=== PATIENT | male | born 1955 | race Caucasian/White ===

== ENCOUNTER → 2019-06-05 | Outpatient (CLI) | payer OTHER ==
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
[~2019-06-05] VITALS: Ht 175.3 cm; Wt 109.8 kg
[~2019-06-05] MED LIST: REGADENOSON 0.4 MG/5 ML PF SYG IVP SCH
== END | disposition home or self-care (01) ==
LOC: SHCH 06-03 07:48
PROVIDERS: ATTEND Internal Medicine Cardiovascular Disease
DX: I25.10 Atherosclerotic heart disease of native coronary artery without angina pectoris (principal)
CPT/HCPCS: 78452; 93017; 96374; A9500 ×2; J2785

== ENCOUNTER → 2022-02-17 | Outpatient (CLI) | payer OTHER ==
[2022-02-17 13:26] LABS: CREATININE 1.3 mg/dL (0.5-1.5)
== END | disposition home or self-care (01) ==
LOC: LAB 11:56
PROVIDERS: ATTEND Family Medicine
DX: M25.561 Pain in right knee (principal)
CPT/HCPCS: 36415; 82565; 84520

== ENCOUNTER → 2022-02-20 | Outpatient (CLI) | payer OTHER ==
[~2022-02-20] MED LIST changes: +GADOTERATE MEGLUMINE 10 MMOL/20 ML VIAL IV ONE; -REGADENOSON 0.4 MG/5 ML PF SYG IVP SCH
== END | disposition home or self-care (01) ==
LOC: RAH 11:08
PROVIDERS: ATTEND Family Medicine
DX: S83.281A Other tear of lateral meniscus, current injury, right knee, initial encounter (principal); M17.11 Unilateral primary osteoarthritis, right knee; M65.9 Synovitis and tenosynovitis, unspecified; M71.21 Synovial cyst of popliteal space [Baker], right knee; S83.241A Other tear of medial meniscus, current injury, right knee, initial encounter; X58.XXXA Exposure to other specified factors, initial encounter; Y93.89 Activity, other specified; Y92.89 Other specified places as the place of occurrence of the external cause; Y99.8 Other external cause status
CPT/HCPCS: 73723; A9575

== ENCOUNTER → 2022-07-18 | Outpatient (CLI) | payer OTHER ==
[~2022-07-18] MED LIST changes: -GADOTERATE MEGLUMINE 10 MMOL/20 ML VIAL IV ONE; +REGADENOSON 0.4 MG/5 ML PF SYG IVP SCH
== END | disposition home or self-care (01) ==
LOC: SHCH 09:10
PROVIDERS: ATTEND Internal Medicine Cardiovascular Disease
DX: Z01.810 Encounter for preprocedural cardiovascular examination (principal); I45.10 Unspecified right bundle-branch block; R94.39 Abnormal result of other cardiovascular function study; M25.561 Pain in right knee; M17.0 Bilateral primary osteoarthritis of knee; I12.9 Hypertensive chronic kidney disease with stage 1 through stage 4 chronic kidney disease, or unspecified chronic kidney disease; N18.9 Chronic kidney disease, unspecified; E78.5 Hyperlipidemia, unspecified; Z79.899 Other long term (current) drug therapy; Z95.1 Presence of aortocoronary bypass graft
CPT/HCPCS: 78452; 96374; 93017; J2785; A9500 ×2

== ENCOUNTER 2022-08-15 07:27 | Observation (INO) | payer OTHER ==
[2022-08-09 14:19] LABS: BASOPHILS % (AUTO) 0.4 % (0.0-5.0); EOSINOPHILS % (AUTO) 3.3 % (0.0-8.0); HEMATOCRIT 49.6 % (42-54); LYMPHOCYTES % (AUTO) 22.8 % (21.0-51.0); MEAN CORPUSCULAR HEMOGLOBIN 31.5 pg (27.0-33.0); MEAN CORPUSCULAR HGB CONC 32.9 g/dL (32.0-36.0); MEAN CORPUSCULAR VOLUME 95.8 fL (79-99); MONOCYTES % (AUTO) 6.1 % (3.0-13.0); PLATELET COUNT (AUTO) 197 K/uL (130-400); RED BLOOD CELL COUNT(AUTO) 5.18 MIL/uL (4.50-6.20); WHITE BLOOD COUNT (AUTO) 7.2 K/uL (4.8-10.8)
[2022-08-09 14:29] LABS: INR 1.07 (0.85-1.15); PROTHROMBIN TIME 11.6 SEC (9.6-11.6)
[2022-08-09 14:31] LABS: CREATININE 1.2 mg/dL (0.5-1.5); PARTIAL THROMBOPLASTIN TIME 29.1 SEC (26.3-35.5); POTASSIUM 3.9 mmol/L (3.5-5.1)
[~2022-08-15] VITALS: Ht 175.3 cm; Wt 111.6 kg
[2022-08-15] VITALS (24 sets, daily range): BP systolic 112–160; BP diastolic 55–97
[~2022-08-15 07:27] MED LIST changes: +AEC81 PO; +AMLO-257 PO; +ANDROGEL PO; +BUPR75TA8 PO; +CARV10CR PO; +CLOP-31 PO; +EZET10TA48 PO; +FENO145T26 PO; +GLUCOSAMINE PO; +KRILL OIL PO; +LACTATED RINGERS 1000ML 1,000 ML IV SCH; +OLME40TA18 PO; -REGADENOSON 0.4 MG/5 ML PF SYG IVP SCH; +ROSU20TA23 PO; +TRANEXAMIC ACID 1000MG/10ML IJ SCH; +TRAZ150T79 PO; +VITAMIN D3 PO
[2022-08-15] MEDS: CEFAZOLIN SODIUM 2 GM VIAL IVPB SCH ×2 (08:00→11:55)
[2022-08-15] MEDS ORDERED: TRANEXAMIC ACID 1000MG/10ML ONE (08:38)
[2022-08-15] MEDS ORDERED: ROPIVACAINE 0.5% 5MG/ML 30ML IJ ONE (08:38)
[2022-08-15] MEDS ORDERED: ESCI-8 PO (08:41)
[2022-08-15] MEDS ORDERED: SUCCINYLCHOLINE CHLORIDE 20 MG/ML 10 ML VIAL ONE (11:35)
[2022-08-15] MEDS ORDERED: ROCURONIUM 10MG/1ML SYR 10 MG/ML ML ONE (11:36)
[2022-08-15] MEDS ORDERED: MIDAZOLAM HCL 1 MG/ML 2ML VIAL ONE (11:36)
[2022-08-15] MEDS ORDERED: FENTANYL CITRATE PF 50 MCG/1 ML 2ML VIAL ONE (11:36)
[2022-08-15] MEDS ORDERED: PROPOFOL 10 MG/ML 20ML VIAL IV ONE (11:36)
[2022-08-15] MEDS ORDERED: EPHEDRINE SULFATE 50 MG/ML AMPULE ONE (12:25)
[2022-08-15] MEDS ORDERED: GLYCOPYRROLATE 1 MG/5 ML SYRINGE ONE (13:49)
[2022-08-15] MEDS ORDERED: NEOSTIGMINE 5MG/5ML SYR IV ONE (13:49)
[2022-08-15] MEDS ORDERED: LIDOCAINE HCL-MPF 1% 2ML VIAL IV PRN (14:00)
[2022-08-15] MEDS ORDERED: ONDANSETRON 4MG INJ IVP PRN (14:00)
[2022-08-15] MEDS ORDERED: HYDROCODONE/ACETAMINOPHEN 5/325 MG TAB PO PRN (14:00)
[2022-08-15] MEDS ORDERED: POTASSIUM CHLORIDE 10% ELIXIR 20 MEQ/15 ML UDCUP PO PRN (14:00)
[2022-08-15] MEDS ORDERED: 0.9%NACL 1000ML 1,000 ML IV SCH (14:00)
[2022-08-15] MEDS ORDERED: KCL 20 MEQ ERTAB PO PRN (14:00)
[2022-08-15] MEDS ORDERED: POTASSIUM CHLORIDE 20MEQ/100ML 100 ML IV PRN (14:00)
[2022-08-15] MEDS: ACETAMINOPHEN 1,000 MG/100 ML VIAL IV SCH ×2 (14:25→20:26)
[2022-08-15] MEDS ORDERED: MEPERIDINE-PF 25 MG/ML SYG ONE (14:29)
[2022-08-15] MEDS ORDERED: IBUPROFEN 800MG + NS 250ML IV SCH (17:00)
[2022-08-15] MEDS: MORPHINE 4 MG SYG IVP PRN ×2 (17:58→23:29)
[2022-08-15] MEDS: CEFAZOLIN SODIUM 2 GM VIAL IVP SCH (18:46)
[2022-08-15] MEDS: ASPIRIN 81 MG EC TAB PO SCH (20:44)
[2022-08-15] MEDS: FENOFIBRATE NANOCRYSTALLIZED 145 MG TAB PO SCH (20:44)
[2022-08-15] MEDS: FAMOTIDINE 20MG TAB PO SCH (20:44)
[2022-08-15] MEDS: CITALOPRAM 20 MG TABLET PO SCH (20:45)
[2022-08-15] MEDS: CARVEDILOL PHOSPHATE 10 MG PO SCH (20:45)
[2022-08-15] MEDS: HYDROCODONE/ACETAMINOPHEN 10/325 MG TAB PO PRN (22:01)
[2022-08-15] MEDS: TRAZODONE HCL 50 MG TAB PO SCH (23:36)
[2022-08-16] VITALS: BP 136/72
[2022-08-16] MEDS: CALDOLOR 800MG+NS 250ML 250 ML IV SCH ×2 (01:30→09:24)
[2022-08-16] MEDS: MORPHINE 4 MG SYG IVP PRN ×4 (03:11→20:17)
[2022-08-16] MEDS: ACETAMINOPHEN 1,000 MG/100 ML VIAL IV SCH (03:11)
[2022-08-16 04:00] VITALS: BP 137/76
[2022-08-16] MEDS: CEFAZOLIN SODIUM 2 GM VIAL IVP SCH (04:45)
[2022-08-16 05:23] LABS: HEMATOCRIT 44.8 % (42-54); MEAN CORPUSCULAR HEMOGLOBIN 32.6 pg (27.0-33.0); MEAN CORPUSCULAR VOLUME 98.7 fL (79-99); RED BLOOD CELL COUNT(AUTO) 4.54 MIL/uL (4.50-6.20); RED CELL DISTRIBUTION WIDTH 13.2 % (11.0-15.5); WHITE BLOOD COUNT (AUTO) 10.5 K/uL (4.8-10.8)
[2022-08-16 05:42] LABS: CREATININE 1.2 mg/dL (0.5-1.5); POTASSIUM 3.8 mmol/L (3.5-5.1)
[2022-08-16 07:05] VITALS: BP 131/75
[2022-08-16] MEDS: CARVEDILOL PHOSPHATE 10 MG PO SCH ×2 (09:00→18:57)
[2022-08-16] MEDS: TESTOSTERONE 100 MG PO SCH (09:00)
[2022-08-16] MEDS: HYDROCODONE/ACETAMINOPHEN 10/325 MG TAB PO PRN ×3 (09:13→22:32)
[2022-08-16] MEDS: FAMOTIDINE 20MG TAB PO SCH ×2 (09:14→20:14)
[2022-08-16] MEDS: ASPIRIN 81 MG EC TAB PO SCH ×2 (09:14→20:14)
[2022-08-16] MEDS: AMLODIPINE 5 MG TAB PO SCH (09:14)
[2022-08-16] MEDS: BUPROPION HCL 150 MG TABLET.SA PO SCH (09:14)
[2022-08-16] MEDS: EZETIMIBE 10 MG TAB PO SCH (09:14)
[2022-08-16] MEDS: POLYETHYLENE GLYCOL 3350 17 GM POWD.PACK PO SCH (09:16)
[2022-08-16] MEDS: LOSARTAN 100 MG TABLET PO SCH (09:16)
[2022-08-16 11:05] VITALS: BP 150/80
[2022-08-16 15:30] VITALS: BP 178/84
[2022-08-16] MEDS ORDERED: PREDNISONE 10 MG TABLET ONE (16:34)
[2022-08-16] MEDS: PREDNISONE 10 MG TABLET PO SCH (16:36)
[2022-08-16] MEDS: CITALOPRAM 20 MG TABLET PO SCH (20:14)
[2022-08-16] MEDS: FENOFIBRATE NANOCRYSTALLIZED 145 MG TAB PO SCH (20:14)
[2022-08-16] MEDS: TRAZODONE HCL 50 MG TAB PO SCH (20:15)
[2022-08-16 20:16] VITALS: BP 166/80
[2022-08-17] VITALS: BP 159/89
[2022-08-17 04:00] VITALS: BP 152/84
[2022-08-17 07:10] VITALS: BP 163/86
[2022-08-17] MEDS: HYDROCODONE/ACETAMINOPHEN 10/325 MG TAB PO PRN (08:21)
[2022-08-17] MEDS: ASPIRIN 81 MG EC TAB PO SCH (08:21)
[2022-08-17] MEDS: FAMOTIDINE 20MG TAB PO SCH (08:21)
[2022-08-17] MEDS: EZETIMIBE 10 MG TAB PO SCH (08:21)
[2022-08-17] MEDS: BUPROPION HCL 150 MG TABLET.SA PO SCH (08:22)
[2022-08-17] MEDS: LOSARTAN 100 MG TABLET PO SCH (08:22)
[2022-08-17] MEDS: CARVEDILOL PHOSPHATE 10 MG PO SCH (08:24)
[2022-08-17] MEDS: POLYETHYLENE GLYCOL 3350 17 GM POWD.PACK PO SCH (08:26)
[2022-08-17] MEDS: PREDNISONE 10 MG TABLET PO SCH (08:27)
[2022-08-17] MEDS: AMLODIPINE 5 MG TAB PO SCH (08:49)
[2022-08-17] MEDS: TESTOSTERONE 100 MG PO SCH (09:00)
[2022-08-17] MEDS ORDERED: PREDNISONE 10 MG TABLET PO SCH (09:00)
[2022-08-17 11:35] VITALS: BP 141/78
[2022-08-18] MEDS ORDERED: BISACODYL 10 MG SUPP.RECT RC PRN (14:00)
== END 2022-08-17 12:09 | disposition home or self-care (01) ==
LOC: DAH 07:27 → DAHIP 07:28 → DAH 07:28 → 4BH 15:00
PROVIDERS: ADMIT Orthopaedic Surgery; ATTEND Orthopaedic Surgery
DX: M17.11 Unilateral primary osteoarthritis, right knee (principal); Z20.822 Contact with and (suspected) exposure to COVID-19; I25.10 Atherosclerotic heart disease of native coronary artery without angina pectoris; Z68.38 Body mass index [BMI] 38.0-38.9, adult; Z79.899 Other long term (current) drug therapy; Z79.82 Long term (current) use of aspirin; Z95.1 Presence of aortocoronary bypass graft
CPT/HCPCS: 80048 ×2; 85025; 85610; 85730; 87426; 36415 ×2; 87641; 27447; 96376 ×2; 96365; 96375; 76942; 64447; 96366; 85027; 97161; 97039 ×4; 97116 ×3; 97530 ×3; A6260; S2900; G0378 ×44; A4663; J7030; J7120 ×2; A4649 ×3; A4600 ×2; J3010; J3490 ×3; J2710; J0330; J2250; J2704; J2270 ×6; J2175; J2795; J0690 ×3; G0168; C1776 ×4; A6255; A6254; A5120; A4215; A4223; A4222; A4221; J7512 ×2; J1741

== ENCOUNTER → 2022-10-27 | Outpatient (CLI) | payer OTHER ==
[~2022-10-27] MED LIST changes: +ESCI-8 PO; -LACTATED RINGERS 1000ML 1,000 ML IV SCH; -TRANEXAMIC ACID 1000MG/10ML IJ SCH
== END | disposition home or self-care (01) ==
LOC: RAH 14:37
PROVIDERS: ATTEND Orthopaedic Surgery
DX: M17.12 Unilateral primary osteoarthritis, left knee (principal)
CPT/HCPCS: 73700

== ENCOUNTER 2022-10-31 07:27 | Observation (INO) | payer OTHER ==
[2022-10-25 12:14] VITALS: BP 151/87
[2022-10-25 12:19] LABS: BASOPHILS % (AUTO) 0.8 % (0.0-5.0); HEMATOCRIT 50.9 % (42-54); LYMPHOCYTES % (AUTO) 27.2 % (21.0-51.0); MEAN CORPUSCULAR HEMOGLOBIN 31.4 pg (27.0-33.0); MEAN CORPUSCULAR HGB CONC 32.6 g/dL (32.0-36.0); MEAN CORPUSCULAR VOLUME 96.4 fL (79-99); MONOCYTES % (AUTO) 9.8 % (3.0-13.0); NEUTROPHILS % (AUTO) 58.9 % (40.0-77.0); PLATELET COUNT (AUTO) 196 K/uL (130-400); RED BLOOD CELL COUNT(AUTO) 5.28 MIL/uL (4.50-6.20); RED CELL DISTRIBUTION WIDTH 14.2 % (11.0-15.5)
[2022-10-25 12:30] LABS: CREATININE 1.2 mg/dL (0.5-1.5); POTASSIUM 4.2 mmol/L (3.5-5.1)
[2022-10-25 12:31] LABS: INR 1.07 (0.85-1.15); PROTHROMBIN TIME 11.6 SEC (9.6-11.6)
[2022-10-25 12:32] LABS: PARTIAL THROMBOPLASTIN TIME 27.6 SEC (26.3-35.5)
[~2022-10-31] VITALS: Ht 175.3 cm; Wt 109.1 kg
[2022-10-31] VITALS (31 sets, daily range): BP systolic 121–163; BP diastolic 50–92
[~2022-10-31 07:27] MED LIST changes: +CEFAZOLIN SODIUM 1 GM VIAL IVPB SCH; +LACTATED RINGERS 1000ML 1,000 ML IV SCH; +ROPIVICAINE 250MG+KETOROLAC 15MG+EPINEPHRINE 0.3+CLONIDINE 80 IV PRN
[2022-10-31] MEDS ORDERED: TRANEXAMIC ACID 1000MG/10ML ONE ×3 (08:11→10:47)
[2022-10-31] MEDS ORDERED: LIDOCAINE PF 100MG/5ML (2%) SYRINGE 5ML ONE (09:46)
[2022-10-31] MEDS ORDERED: PROPOFOL 10 MG/ML 20ML VIAL IV ONE (09:46)
[2022-10-31] MEDS ORDERED: FENTANYL CITRATE PF 50 MCG/1 ML 5ML AMP IV ONE (09:47)
[2022-10-31] MEDS ORDERED: MIDAZOLAM HCL 1 MG/ML 2ML VIAL ONE (09:47)
[2022-10-31] MEDS ORDERED: ROCURONIUM 10MG/1ML SYR 10 MG/ML ML ONE (09:47)
[2022-10-31] MEDS ORDERED: CEFAZOLIN SODIUM 2 GM VIAL IVPB ONE (11:46)
[2022-10-31] MEDS ORDERED: POTASSIUM CHLORIDE 10% ELIXIR 20 MEQ/15 ML UDCUP PO PRN (12:00)
[2022-10-31] MEDS ORDERED: ONDANSETRON 4MG INJ IVP PRN (12:00)
[2022-10-31] MEDS ORDERED: POTASSIUM CHLORIDE 20MEQ/100ML 100 ML IV PRN (12:00)
[2022-10-31] MEDS ORDERED: LIDOCAINE HCL-MPF 1% 2ML VIAL IV PRN (12:00)
[2022-10-31] MEDS ORDERED: KCL 20 MEQ ERTAB PO PRN (12:00)
[2022-10-31] MEDS ORDERED: HYDROMORPHONE HCL 2 MG TAB PO PRN (12:00)
[2022-10-31] MEDS ORDERED: TRANEXAMIC ACID 1000MG/10ML IV ONE ×2 (12:16→12:54)
[2022-10-31] MEDS ORDERED: CALDOLOR 800MG+NS 250ML 250 ML IV SCH (13:00)
[2022-10-31] MEDS ORDERED: IBUPROFEN 800MG + NS 250ML IV SCH (15:00)
[2022-10-31] MEDS: MEPERIDINE-PF 25 MG/ML SYG IVP PRN (15:00)
[2022-10-31] MEDS: 0.9%NACL 1000ML 1,000 ML IV SCH (16:10)
[2022-10-31] MEDS: ACETAMINOPHEN 1,000 MG/100 ML VIAL IV SCH ×2 (16:11→19:21)
[2022-10-31] MEDS: HYDROMORPHONE 2 MG VIAL (2MG/ML) IVP PRN ×2 (17:12→22:16)
[2022-10-31] MEDS: CEFAZOLIN SODIUM 1 GM VIAL IVP SCH (17:25)
[2022-10-31] MEDS ORDERED: CITALOPRAM 20 MG TABLET PO SCH (21:00)
[2022-10-31] MEDS ORDERED: CARVEDILOL PHOSPHATE 10 MG PO SCH (21:00)
[2022-10-31] MEDS ORDERED: TRAZODONE HCL 50 MG TAB PO SCH (21:00)
[2022-10-31] MEDS ORDERED: FENOFIBRATE NANOCRYSTALLIZED 145 MG TAB PO SCH (21:00)
[2022-10-31] MEDS: ASPIRIN 81 MG EC TAB PO SCH (22:05)
[2022-10-31] MEDS: FAMOTIDINE 20MG TAB PO SCH (22:06)
[2022-10-31] MEDS ORDERED: CARV12.580 PO (22:11)
[2022-11-01] MEDS: ACETAMINOPHEN 1,000 MG/100 ML VIAL IV SCH (00:27)
[2022-11-01] MEDS: CEFAZOLIN SODIUM 1 GM VIAL IVP SCH (01:50)
[2022-11-01] MEDS: 0.9%NACL 1000ML 1,000 ML IV SCH ×2 (02:50→08:00)
[2022-11-01] MEDS ORDERED: CALDOLOR 800MG+NS 250ML 250 ML IV SCH (03:00)
[2022-11-01 04:33] VITALS: BP 134/70
[2022-11-01 06:06] LABS: HEMATOCRIT 40.3 % (42-54); MEAN CORPUSCULAR HEMOGLOBIN 31.4 pg (27.0-33.0); MEAN CORPUSCULAR HGB CONC 31.5 g/dL (32.0-36.0); MEAN CORPUSCULAR VOLUME 99.5 fL (79-99); RED BLOOD CELL COUNT(AUTO) 4.05 MIL/uL (4.50-6.20); RED CELL DISTRIBUTION WIDTH 14.2 % (11.0-15.5); WHITE BLOOD COUNT (AUTO) 7.3 K/uL (4.8-10.8)
[2022-11-01 06:24] LABS: CREATININE 1.3 mg/dL (0.5-1.5); POTASSIUM 4.2 mmol/L (3.5-5.1)
[2022-11-01] MEDS: HYDROMORPHONE 2 MG VIAL (2MG/ML) IVP PRN (06:57)
[2022-11-01 07:35] VITALS: BP 123/67
[2022-11-01] MEDS: FAMOTIDINE 20MG TAB PO SCH (08:24)
[2022-11-01] MEDS: ASPIRIN 81 MG EC TAB PO SCH (08:25)
[2022-11-01] MEDS ORDERED: EZETIMIBE 10 MG TAB PO SCH (09:00)
[2022-11-01] MEDS ORDERED: POLYETHYLENE GLYCOL 3350 17 GM POWD.PACK PO SCH (09:00)
[2022-11-01] MEDS ORDERED: AMLODIPINE 5 MG TAB PO SCH (09:00)
[2022-11-01] MEDS ORDERED: BUPROPION HCL 75 MG PO SCH (09:00)
[2022-11-01] MEDS ORDERED: CARVEDILOL 12.5 MG TABLET PO SCH (09:00)
[2022-11-01] MEDS ORDERED: LOSARTAN 100 MG TABLET PO SCH (09:00)
[2022-11-01] MEDS: MEPERIDINE-PF 25 MG/ML SYG IVP PRN (11:30)
[2022-11-01] MEDS ORDERED: ACETAMINOPHEN 325 MG TAB PO PRN (11:30)
[2022-11-01 11:50] VITALS: BP 154/75
[2022-11-03] MEDS ORDERED: BISACODYL 10 MG SUPP.RECT RC PRN (12:00)
== END 2022-11-01 17:25 | disposition home or self-care (01) ==
LOC: DAH 07:27 → DAHIP 07:28 → 3CH 16:19
PROVIDERS: ADMIT Orthopaedic Surgery; ATTEND Orthopaedic Surgery
DX: M17.12 Unilateral primary osteoarthritis, left knee (principal); Z20.822 Contact with and (suspected) exposure to COVID-19; I10 Essential (primary) hypertension; I25.10 Atherosclerotic heart disease of native coronary artery without angina pectoris; E05.90 Thyrotoxicosis, unspecified without thyrotoxic crisis or storm; Z79.899 Other long term (current) drug therapy
CPT/HCPCS: 0055T; 27447; 36415; 80048; 85025; 85027; 85610; 85730; 87426; 87641; 96365; 96366; 96375; 96376; 97039; G0378; J0171; J0690; J0735; J1170; J1741; J1885; J2001; J2175; J2250; J2405; J2704; J2795; J3010; J3490; J7030; J7120